=== PATIENT | male | born 1970 | race Two or more races ===

== ENCOUNTER 2023-04-16 08:45 | Emergency (ER) | payer SELFPAY ==
[~2023-04-16] VITALS: Ht 175.3 cm; Wt 80.2 kg
[~2023-04-16 08:45] MED LIST: CARV25TA PO; METF-370 PO; NIFE1TAB30 PO
[2023-04-16] MEDS ORDERED: CARVEDILOL 12.5 MG TAB PO ONE (09:15)
[2023-04-16 09:29] LABS: Basophils # (auto) 0 10 ^3/uL (0-0.2); Basophils % (auto) 0.5 % (0.0-2.0); Eosinophils # (auto) 0.3 10 ^3/uL (0-0.8); Eosinophils % (auto) 4.4 % (0.0-7.0); Hematocrit 36.3 % (41.0-53.0); Hemoglobin 11.8 g/dL (13.5-17.5); Lymphocytes # (auto) 1.1 10 ^3/uL (0.4-5.4); Lymphocytes % (auto) 13.9 % (10.0-50.0); Mean Corpuscular Hemoglobin 29.8 pg (28.0-32.0); Mean Corpuscular Hgb Conc. 32.5 g/dL (32.0-36.0); Mean Corpuscular Volume 91.7 fL (80.0-100.0); Monocytes # (auto) 0.6 10 ^3/uL (0-1.3); Monocytes % (auto) 7.5 % (0.0-12.0); Neutrophils # (auto) 5.8 10 ^3/uL (1.6-8.6); Neutrophils % (auto) 73.7 % (37.0-80.0); Red Blood Cells 3.96 10^6/uL (4.5-5.90); Red Cell Distribution Width 15.7 % (11.8-14.3); White Blood Cell 7.8 10^3/uL (4.4-10.8)
[2023-04-16 09:49] LABS: Alanine Aminotransferase 13 U/L (7-40); Alkaline Phosphatase 131 U/L (46-116); Anion Gap 8 (5-15); Aspartate Aminotransferase 11 U/L (13-40); BUN/Creatinine Ratio 6.9 (10.0-20.0); Blood Urea Nitrogen 31 mg/dL (9-23); Calcium 8.2 mg/dL (8.5-10.1); Carbon Dioxide 28 mmol/L (20-30); Chloride 105 mmol/L (98-107); Glucose 221 mg/dL (74-106); Potassium 4.1 mmol/L (3.5-5.1); Sodium 141 mmol/L (136-145)
[2023-04-16 09:50] LABS: Bilirubin, Total 0.4 mg/dL (0.2-1.0); Total Protein 6.5 g/dL (5.7-8.2)
[2023-04-16 11:27] VITALS: PULSE 68; RESP 13; O2SAT 98
[2023-04-16 11:31] LABS: Urine Bacteria NONE SEEN /hpf (None Seen); Urine Blood Negative /uL (Negative); Urine Clarity Clear (Clear); Urine Color Yellow (Yellow); Urine Protein, UAD 4+ (Negative); Urine Specific Gravity 1.022 (1.001-1.035); Urine Urobilinogen Normal (Negative); Urine WBC 1 /hpf (0 - 3)
[2023-04-16] MEDS ORDERED: BACDST PO (11:53)
[2023-04-16 12:06] VITALS: BP 167/84; PULSE 68; RESP 16; TEMP 97.8; O2SAT 100
== END 2023-04-16 12:09 | disposition home or self-care (01) ==
LOC: ER 08:45
DX: E11.621 Type 2 diabetes mellitus with foot ulcer (principal); I12.9 Hypertensive chronic kidney disease with stage 1 through stage 4 chronic kidney disease, or unspecified chronic kidney disease; E11.22 Type 2 diabetes mellitus with diabetic chronic kidney disease; N18.9 Chronic kidney disease, unspecified; Z98.890 Other specified postprocedural states; Z87.891 Personal history of nicotine dependence; Z79.899 Other long term (current) drug therapy
CPT/HCPCS: 36415; 73630; 80053; 81001; 85025

== ENCOUNTER 2023-04-17 18:07 | Emergency (ER) | payer MEDICAID, OTHER ==
[~2023-04-17] VITALS: Ht 175.3 cm; Wt 80.1 kg
[~2023-04-17 18:07] MED LIST changes: +BACDST PO
[2023-04-17 20:21] LABS: Basophils # (auto) 0 10 ^3/uL (0-0.2); Basophils % (auto) 0.5 % (0.0-2.0); Eosinophils # (auto) 0 10 ^3/uL (0-0.8); Eosinophils % (auto) 0.2 % (0.0-7.0); Hematocrit 33.8 % (41.0-53.0); Hemoglobin 11.1 g/dL (13.5-17.5); Lymphocytes # (auto) 0.6 10 ^3/uL (0.4-5.4); Lymphocytes % (auto) 6.6 % (10.0-50.0); Mean Corpuscular Hemoglobin 29.9 pg (28.0-32.0); Mean Corpuscular Hgb Conc. 32.9 g/dL (32.0-36.0); Mean Corpuscular Volume 90.9 fL (80.0-100.0); Monocytes # (auto) 0.6 10 ^3/uL (0-1.3); Monocytes % (auto) 6.5 % (0.0-12.0); Neutrophils # (auto) 7.3 10 ^3/uL (1.6-8.6); Neutrophils % (auto) 86.2 % (37.0-80.0); Red Blood Cells 3.72 10^6/uL (4.5-5.90); White Blood Cell 8.5 10^3/uL (4.4-10.8)
[2023-04-17 20:35] LABS: INR 1.06 (0.9-1.15); Prothrombin Time 11.1 sec (9.3-11.8)
[2023-04-17 20:45] LABS: Alanine Aminotransferase 18 U/L (7-40); Albumin 3.8 g/dL (3.2-4.8); Alkaline Phosphatase 135 U/L (46-116); Anion Gap 10 (5-15); Aspartate Aminotransferase 16 U/L (13-40); BUN/Creatinine Ratio 7.7 (10.0-20.0); Bilirubin, Total 0.3 mg/dL (0.2-1.0); Calcium 7.5 mg/dL (8.7-10.4); Carbon Dioxide 23 mmol/L (20-30); Chloride 102 mmol/L (98-107); Glucose 231 mg/dL (74-106); Potassium 4.8 mmol/L (3.5-5.1); Total Protein 6.2 g/dL (5.7-8.2)
[2023-04-17 21:18] LABS: Blood Urea Nitrogen 53 mg/dL (9-23); Sodium 135 mmol/L (136-145)
[2023-04-18 00:01] VITALS: BP 124/63; PULSE 65; RESP 20; TEMP 99.4; O2SAT 100
== END 2023-04-18 00:03 | disposition home or self-care (01) ==
LOC: ER 18:07
DX: E11.621 Type 2 diabetes mellitus with foot ulcer (principal); I12.0 Hypertensive chronic kidney disease with stage 5 chronic kidney disease or end stage renal disease; E11.22 Type 2 diabetes mellitus with diabetic chronic kidney disease; N18.6 End stage renal disease; Z87.891 Personal history of nicotine dependence; Z79.84 Long term (current) use of oral hypoglycemic drugs; Z79.899 Other long term (current) drug therapy
CPT/HCPCS: 36415; 73700; 80053; 85025; 85610; 93971

== ENCOUNTER 2023-04-21 10:01 | Inpatient (IN) | payer MEDICAID ==
[~2023-04-21] VITALS: Ht 175.3 cm; Wt 88.2 kg
[2023-04-21 10:31] LABS: Basophils # (auto) 0.1 10 ^3/uL (0-0.2); Basophils % (auto) 0.7 % (0.0-2.0); Eosinophils # (auto) 0.3 10 ^3/uL (0-0.8); Eosinophils % (auto) 3.3 % (0.0-7.0); Hematocrit 33.2 % (41.0-53.0); Hemoglobin 10.9 g/dL (13.5-17.5); Lymphocytes # (auto) 1.3 10 ^3/uL (0.4-5.4); Lymphocytes % (auto) 14.6 % (10.0-50.0); Mean Corpuscular Hemoglobin 29.3 pg (28.0-32.0); Mean Corpuscular Hgb Conc. 32.7 g/dL (32.0-36.0); Mean Corpuscular Volume 89.5 fL (80.0-100.0); Monocytes # (auto) 0.9 10 ^3/uL (0-1.3); Monocytes % (auto) 10.3 % (0.0-12.0); Neutrophils # (auto) 6.3 10 ^3/uL (1.6-8.6); Neutrophils % (auto) 71.1 % (37.0-80.0); Red Blood Cells 3.71 10^6/uL (4.5-5.90); White Blood Cell 8.9 10^3/uL (4.4-10.8)
[2023-04-21 10:57] LABS: Alanine Aminotransferase 24 U/L (7-40); Alkaline Phosphatase 142 U/L (46-116); Anion Gap 8 (5-15); Aspartate Aminotransferase 15 U/L (13-40); Blood Urea Nitrogen 32 mg/dL (9-23); Calcium 8.3 mg/dL (8.7-10.4); Carbon Dioxide 27 mmol/L (20-30); Chloride 101 mmol/L (98-107); Glucose 199 mg/dL (74-106); Potassium 4.2 mmol/L (3.5-5.1); Sodium 136 mmol/L (136-145)
[2023-04-21 10:58] LABS: Bilirubin, Total 0.3 mg/dL (0.2-1.0); Total Protein 6.5 g/dL (5.7-8.2)
[2023-04-21 12:32] LABS: Erythrocyte Sedimentation Rate 53 mm/hr (0-20)
[2023-04-21] MEDS ORDERED: VANCOMYCIN PER PHARMACY 0 MG IV SCH (14:45)
[2023-04-21 14:46] LABS: Triglycerides 105 mg/dL (< 150)
[2023-04-21 14:47] LABS: LDL Cholesterol 113 mg/dL (< 100)
[2023-04-21 14:48] LABS: Cholesterol 171 mg/dL (< 200)
[2023-04-21 15:00] VITALS: PULSE 75; RESP 19; O2SAT 98
[2023-04-21] MEDS ORDERED: VANCOMYCIN 1GM/250ML 250 ML IV ONE (15:00)
[2023-04-21 15:44] LABS: HDL Cholesterol 42 mg/dL (40-59)
[2023-04-21] MEDS: HYDROcodone-ACET 5/325MG TAB PO PRN ×2 (15:52→21:31)
[2023-04-21] MEDS: NIFEdipine ER 30 MG TAB PO SCH (17:59)
[2023-04-21] MEDS: AMPICILLIN & SULBACTAM SODIUM 3 GM in SODIUM CHL 0.9% 100 ML IV SCH (17:59)
[2023-04-21 20:00] VITALS: PULSE 68; RESP 12; O2SAT 94
[2023-04-21] MEDS: CARVEDILOL 12.5 MG TAB PO SCH ×2 (20:14→22:00)
[2023-04-21 21:07] VITALS: PULSE 95; RESP 18; O2SAT 98
[2023-04-21] MEDS: MELATONIN 5 MG TAB PO SCH (21:28)
[2023-04-21] MEDS: ATORVASTATIN 20 MG TAB PO SCH (21:28)
[2023-04-21 23:51] VITALS: BP 152/71; PULSE 78; RESP 18; TEMP 98.9; O2SAT 96
[2023-04-22] VITALS (7 sets, daily range): BP systolic 104–144; BP diastolic 56–74; PULSE 65–76; RESP 11–18; TEMP 98.1–99.6; O2SAT 94–96
[2023-04-22] MEDS: AMPICILLIN & SULBACTAM SODIUM 3 GM in SODIUM CHL 0.9% 100 ML IV SCH ×2 (03:25→18:00)
[2023-04-22 04:28] LABS: Amphetamine Screen, Urine Neg (NEGATIVE); Barbiturate Scree,Urine Neg (NEGATIVE); Benzodiazephine Screen, Urine Neg (NEGATIVE); Cannabinoid Screen, Urine Neg (NEGATIVE); Cocaine Screen, Urine Neg (NEGATIVE); Phencyclidine Screen, Urine Neg (NEGATIVE)
[2023-04-22 04:29] LABS: Urine Bacteria NONE SEEN /hpf (None Seen); Urine Blood Negative /uL (Negative); Urine Clarity Clear (Clear); Urine Color Yellow (Yellow); Urine Protein, UAD 4+ (Negative); Urine Specific Gravity 1.023 (1.001-1.035); Urine Urobilinogen Normal (Negative); Urine WBC 3 /hpf (0 - 3); Urine pH 7.5 (5.0-8.0)
[2023-04-22 05:09] LABS: Opiate Scree,Urine Neg (NEGATIVE)
[2023-04-22 06:20] LABS: Basophils # (auto) 0 10 ^3/uL (0-0.2); Basophils % (auto) 0.4 % (0.0-2.0); Eosinophils # (auto) 0.3 10 ^3/uL (0-0.8); Eosinophils % (auto) 3.6 % (0.0-7.0); Hematocrit 28.4 % (41.0-53.0); Hemoglobin 9.4 g/dL (13.5-17.5); Lymphocytes # (auto) 1.5 10 ^3/uL (0.4-5.4); Lymphocytes % (auto) 17.6 % (10.0-50.0); Mean Corpuscular Hemoglobin 29.6 pg (28.0-32.0); Mean Corpuscular Hgb Conc. 33.1 g/dL (32.0-36.0); Mean Corpuscular Volume 89.4 fL (80.0-100.0); Monocytes % (auto) 11.7 % (0.0-12.0); Neutrophils # (auto) 5.5 10 ^3/uL (1.6-8.6); Neutrophils % (auto) 66.7 % (37.0-80.0); Red Blood Cells 3.17 10^6/uL (4.5-5.90); Red Cell Distribution Width 14.8 % (11.8-14.3); White Blood Cell 8.3 10^3/uL (4.4-10.8)
[2023-04-22 06:22] LABS: Chloride 102 mmol/L (98-107); Potassium 4.1 mmol/L (3.5-5.1); Sodium 138 mmol/L (136-145)
[2023-04-22 06:23] LABS: Calcium 7.8 mg/dL (8.5-10.1)
[2023-04-22 06:28] LABS: BUN/Creatinine Ratio 6.6 (10.0-20.0); Glucose 186 mg/dL (74-106)
[2023-04-22] MEDS: LIDOCAINE W/ EPINEPHRINE 1% 20ML VIAL ONE ×2 (07:04→08:15)
[2023-04-22] MEDS: BUPIVACAINE HCL 0.25% P/F 10 ML VIAL ONE ×2 (07:04→08:15)
[2023-04-22 07:08] LABS: Blood Urea Nitrogen 43 mg/dL (9-23)
[2023-04-22 07:23] LABS: Anion Gap 10 (5-15); Carbon Dioxide 26 mmol/L (20-30)
[2023-04-22] MEDS ORDERED: ceFAZolin 1GM/50ML 100 ML IV ONE (07:46)
[2023-04-22] MEDS ORDERED: PROPOFOL 10 MG/ML 20 ML IV ONE (07:56)
[2023-04-22] MEDS ORDERED: MIDAZOLAM HCL 2MG/2ML 2ml VIAL (1mg/ml) ONE (07:56)
[2023-04-22] MEDS ORDERED: fentaNYL CITRATE 100 MCG/2 ML VL ONE (07:56)
[2023-04-22] MEDS ORDERED: ONDANSETRON HCL 4 MG/2 ML VIAL ONE (08:23)
[2023-04-22] MEDS ORDERED: METOCLOPRAMIDE HCL 5MG/ml INJ 2ml VIAL IV PRN (08:45)
[2023-04-22] MEDS ORDERED: HYDROmorphone HCL 2 MG/ML VL/or syr IV PRN ×2 (08:45)
[2023-04-22] MEDS: NIFEdipine ER 30 MG TAB PO SCH (10:00)
[2023-04-22] MEDS: CARVEDILOL 12.5 MG TAB PO SCH ×2 (10:00→21:59)
[2023-04-22] MEDS ORDERED: VANCOMYCIN 750mg/250ml 250 ML IV ONE (11:00)
[2023-04-22] MEDS: ENOXAPARIN SOD 30 MG/0.3 ML SYRINGE SC SCH (11:20)
[2023-04-22] MEDS ORDERED: DEXTROSE (50%) 50ML SYRG IV PRN (11:45)
[2023-04-22] MEDS: HYDROcodone-ACET 5/325MG TAB PO PRN ×2 (15:07→20:27)
[2023-04-22] MEDS: InsuLIN REG 1unit/0.01ml Soln (100units/ml) SC SCH ×2 (18:01→21:42)
[2023-04-22] MEDS: ACCU-CHEK COMFORT CURVE STRIP VI SCH ×2 (18:18→21:58)
[2023-04-22] MEDS: ATORVASTATIN 20 MG TAB PO SCH (21:58)
[2023-04-22] MEDS: MELATONIN 5 MG TAB PO SCH (21:58)
[2023-04-23] VITALS (7 sets, daily range): BP systolic 107–146; BP diastolic 56–70; PULSE 61–74; RESP 18–20; TEMP 98.4–99.9; O2SAT 90–98
[2023-04-23] MEDS: AMPICILLIN & SULBACTAM SODIUM 3 GM in SODIUM CHL 0.9% 100 ML IV SCH ×2 (01:41→14:12)
[2023-04-23] MEDS: HYDROcodone-ACET 5/325MG TAB PO PRN ×3 (03:13→14:12)
[2023-04-23 04:19] LABS: Basophils # (auto) 0 10 ^3/uL (0-0.2); Basophils % (auto) 0.5 % (0.0-2.0); Eosinophils # (auto) 0.3 10 ^3/uL (0-0.8); Hematocrit 27.8 % (41.0-53.0); Lymphocytes # (auto) 1.5 10 ^3/uL (0.4-5.4); Lymphocytes % (auto) 14.7 % (10.0-50.0); Mean Corpuscular Hemoglobin 29.3 pg (28.0-32.0); Mean Corpuscular Hgb Conc. 32.5 g/dL (32.0-36.0); Mean Corpuscular Volume 90.2 fL (80.0-100.0); Monocytes # (auto) 0.9 10 ^3/uL (0-1.3); Neutrophils # (auto) 7.6 10 ^3/uL (1.6-8.6); Neutrophils % (auto) 72.8 % (37.0-80.0); Red Blood Cells 3.08 10^6/uL (4.5-5.90); Red Cell Distribution Width 15.2 % (11.8-14.3); White Blood Cell 10.4 10^3/uL (4.4-10.8)
[2023-04-23 04:25] LABS: Chloride 101 mmol/L (98-107); Potassium 4.6 mmol/L (3.5-5.1); Sodium 135 mmol/L (136-145)
[2023-04-23 04:26] LABS: Anion Gap 9 (5-15); Calcium 7.6 mg/dL (8.5-10.1); Carbon Dioxide 25 mmol/L (20-30)
[2023-04-23 04:31] LABS: Glucose 101 mg/dL (74-106)
[2023-04-23 04:41] LABS: BUN/Creatinine Ratio 6.6 (10.0-20.0); Blood Urea Nitrogen 50 mg/dL (9-23)
[2023-04-23] MEDS: InsuLIN REG 1unit/0.01ml Soln (100units/ml) SC SCH ×4 (06:18→21:24)
[2023-04-23] MEDS: ACCU-CHEK COMFORT CURVE STRIP VI SCH ×4 (06:19→21:18)
[2023-04-23] MEDS ORDERED: HEPARIN SODIUM (PORCINE) 5000 UNITS/ML 1ML VIAL ONE (06:24)
[2023-04-23] MEDS ORDERED: SODIUM CHL 0.9% 1000 ML BAG XX ONE (07:00)
[2023-04-23] MEDS: CARVEDILOL 12.5 MG TAB PO SCH ×2 (09:39→21:25)
[2023-04-23] MEDS: NIFEdipine ER 30 MG TAB PO SCH (09:39)
[2023-04-23] MEDS: ENOXAPARIN SOD 30 MG/0.3 ML SYRINGE SC SCH (09:40)
[2023-04-23] MEDS: CALCIUM ACETATE 667 MG CAP PO SCH ×2 (11:44→17:36)
[2023-04-23] MEDS ORDERED: VANCOMYCIN 500 MG in D5W 5% 100 ML IV ONE (16:00)
[2023-04-23] MEDS ORDERED: ONDANSETRON HCL 4 MG/2 ML VIAL IV PRN (20:30)
[2023-04-23] MEDS: MELATONIN 5 MG TAB PO SCH (21:12)
[2023-04-23] MEDS: ATORVASTATIN 20 MG TAB PO SCH (21:12)
[2023-04-24] MEDS: AMPICILLIN & SULBACTAM SODIUM 3 GM in SODIUM CHL 0.9% 100 ML IV SCH ×2 (02:28→15:29)
[2023-04-24 05:00] VITALS: BP 109/60; PULSE 65; RESP 18; TEMP 99.7; O2SAT 90
[2023-04-24] MEDS: InsuLIN REG 1unit/0.01ml Soln (100units/ml) SC SCH ×3 (06:17→17:00)
[2023-04-24] MEDS: ACCU-CHEK COMFORT CURVE STRIP VI SCH ×3 (06:17→17:00)
[2023-04-24 06:32] LABS: Basophils # (auto) 0 10 ^3/uL (0-0.2); Basophils % (auto) 0.3 % (0.0-2.0); Eosinophils # (auto) 0.3 10 ^3/uL (0-0.8); Eosinophils % (auto) 3.2 % (0.0-7.0); Hematocrit 26.4 % (41.0-53.0); Hemoglobin 8.7 g/dL (13.5-17.5); Lymphocytes # (auto) 1.2 10 ^3/uL (0.4-5.4); Lymphocytes % (auto) 14.9 % (10.0-50.0); Mean Corpuscular Hemoglobin 29.4 pg (28.0-32.0); Mean Corpuscular Hgb Conc. 33.1 g/dL (32.0-36.0); Monocytes # (auto) 0.7 10 ^3/uL (0-1.3); Monocytes % (auto) 8.9 % (0.0-12.0); Neutrophils % (auto) 72.7 % (37.0-80.0); Red Blood Cells 2.97 10^6/uL (4.5-5.90); Red Cell Distribution Width 15.2 % (11.8-14.3); White Blood Cell 8.3 10^3/uL (4.4-10.8)
[2023-04-24 06:40] LABS: Anion Gap 9 (5-15); Carbon Dioxide 26 mmol/L (20-30); Chloride 100 mmol/L (98-107); Potassium 4.9 mmol/L (3.5-5.1); Sodium 135 mmol/L (136-145)
[2023-04-24 06:46] LABS: Glucose 120 mg/dL (74-106)
[2023-04-24 06:47] LABS: BUN/Creatinine Ratio 4.8 (10.0-20.0); Magnesium 1.8 mg/dL (1.6-2.6)
[2023-04-24 06:54] LABS: Blood Urea Nitrogen 28 mg/dL (9-23)
[2023-04-24] MEDS: ENOXAPARIN SOD 30 MG/0.3 ML SYRINGE SC SCH (08:47)
[2023-04-24] MEDS: CARVEDILOL 12.5 MG TAB PO SCH (08:48)
[2023-04-24] MEDS: CALCIUM ACETATE 667 MG CAP PO SCH ×3 (08:48→18:00)
[2023-04-24] MEDS: NIFEdipine ER 30 MG TAB PO SCH (08:48)
[2023-04-24 09:00] VITALS: BP 113/55; PULSE 63; RESP 19; TEMP 99; O2SAT 93
[2023-04-24 09:22] LABS: Hepatitis B Surface Antigen Negative (Negative)
[2023-04-24 09:43] LABS: Hepatitis A Ab IgM Negative; Hepatitis B Core IgM Negative
[2023-04-24 09:44] LABS: Hepatitis C Antibody Negative (Negative)
[2023-04-24] MEDS ORDERED: CLIN300C70 PO (11:45)
[2023-04-24 13:00] VITALS: BP 112/59; PULSE 62; RESP 18; TEMP 97.9; O2SAT 95
[2023-04-24 13:55] VITALS: BP 112/59; PULSE 62; TEMP 37.2
[2023-04-24] MEDS ORDERED: DAKINS QUARTER STR 0.125% (NaHypochlorite) 473 ML TOPICAL SOL TOP ONE (16:00)
[2023-04-24 17:00] VITALS: BP 100/50; PULSE 64; RESP 17; TEMP 98; O2SAT 97
== END 2023-04-24 20:20 | disposition home or self-care (01) | DRG 314 ==
LOC: ER 10:01 → OVERFLOW 14:17 → EAST 20:30 → TELE-EAST 04-23 07:24 → EAST 04-23 09:47 → CENTRAL 04-24 19:40
PROVIDERS: ADMIT Internal Medicine
PROC: 0JBR0ZZ Excision of Left Foot Subcutaneous Tissue and Fascia, Open Approach (ICD-10-PCS; 2023-04-22)
PROC: 0L8P3ZZ Division of Left Lower Leg Tendon, Percutaneous Approach (ICD-10-PCS; principal; 2023-04-22 08:01)
PROC: 5A1D70Z Performance of Urinary Filtration, Intermittent, Less than 6 Hours Per Day (ICD-10-PCS; 2023-04-23)
DX: M67.02 Short Achilles tendon (acquired), left ankle (principal); I12.0 Hypertensive chronic kidney disease with stage 5 chronic kidney disease or end stage renal disease; L03.116 Cellulitis of left lower limb; E11.22 Type 2 diabetes mellitus with diabetic chronic kidney disease; N18.6 End stage renal disease; L97.429 Non-pressure chronic ulcer of left heel and midfoot with unspecified severity; S91.312A Laceration without foreign body, left foot, initial encounter; E11.621 Type 2 diabetes mellitus with foot ulcer; E78.5 Hyperlipidemia, unspecified; Z99.2 Dependence on renal dialysis; E11.65 Type 2 diabetes mellitus with hyperglycemia; E11.51 Type 2 diabetes mellitus with diabetic peripheral angiopathy without gangrene; F17.210 Nicotine dependence, cigarettes, uncomplicated; X58.XXXA Exposure to other specified factors, initial encounter; M21.962 Unspecified acquired deformity of left lower leg; Z82.49 Family history of ischemic heart disease and other diseases of the circulatory system; Z83.3 Family history of diabetes mellitus; Y93.89 Activity, other specified; Y92.89 Other specified places as the place of occurrence of the external cause; Y99.8 Other external cause status
CPT/HCPCS: 36415; 73700; 73718; 80048; 80053; 80061; 80074; 80202; 80307; 81001; 82565; 82962; 83036; 83735; 84443; 85025; 85652; 87070; 87075; 87076; 87077; 87081; 87186; 87205; 90935; 93925; G0378; J0690; J1815; J2250; J2405; J2704; J3490; J7060